=== PATIENT | male | born 1930 | race Caucasian/White ===

== ENCOUNTER 2017-02-05 05:17 | Day surgery (SDC) | payer MEDICARE, OTHER ==
[~2017-02-05] VITALS: Ht 170.2 cm; Wt 89.0 kg
[2017-02-05] VITALS (10 sets, daily range): BP systolic 143–181; BP diastolic 66–94; PULSE 53–110; TEMP 97.8
[~2017-02-05 05:17] MED LIST: AMIODARONE HCL200 MG PO; AMLODIPINE5 MG PO; ASPIR-LOW81 MG PO; ASPIRIN E.C. 8181 MG PO; B-12 PO; B-12500 MCG PO; CALCIUM CARBON500 M1 PO; CHLORTHALIDONE25 MG PO; DETROL LA2 PO; ELIQUIS 2.5 PO; FAMILY PHARMACY99 MG PO; FERROUS SU325 MG/TAB PO; FISH OIL CONCEN1 SG2 PO; FOLIC ACID PO; GLIPIZIDE2.5 MG PO; GLUCOPHAGE500 MG PO; ISMO 20MG20 MG PO; LANOXIN 0.25M0.25 MG PO; LASIX 20MG TABL20 MG PO; LISINOPRIL PO; LISINOPRIL/HCTZ1 TA1 PO; LOPRESSOR 550 MG/TAB PO; LUTEIN20 M1 PO; Lutein PO; POTASSIUM CH2 MEQ/ML PO; PRILOSEC40 MG PO; TOPROL XL 25MG25 MG PO; TOPROL XL100 MG PO; ZOCOR 20MG20 MG PO; detrol LA PO
[2017-02-05 06:44] LABS: HEMOGLOBIN 12.6 g/dl (13.5-18.0); MEAN CELL VOLUME 92 fl (80.0-100.0); MEAN CORPUSCULAR HEMOGLOBIN 32 pg (27.0-31.0); MEAN CORPUSCULAR HGB CONC 34 g/dl (33.0-37.0); MEAN PLATELET VOLUME 9.4 fl (7.4-10.4); PLATELET COUNT 195 K/mm3 (130-400); WHITE BLOOD COUNT 12.7 K/mm3 (4.8-10.8)
[2017-02-05 06:45] LABS: HEMATOCRIT 36.8 % (42.0-52.0)
[2017-02-05 06:52] LABS: PROTHROMBIN TIME 11.1 SECONDS (9.7-12.8)
[2017-02-05 07:03] LABS: CREATININE, serum 1.59 mg/dL (0.66-1.25)
[2017-02-05] MEDS ORDERED: LEVEMIR100 U/ML SQ (08:40)
[2017-02-05] MEDS ORDERED: NOVOLIN N100 U/ML SQ (08:41)
[2017-02-05] MEDS ORDERED: ZYLOPRIM 100MG100 MG PO (08:44)
[2017-02-05] MEDS ORDERED: HUMALOG100 U/ML SQ (08:44)
[2017-02-05] MEDS ORDERED: LANOX0.0625 PO (08:46)
[2017-02-05] MEDS ORDERED: NATURAL IRON65 MG PO (08:48)
[2017-02-05] MEDS ORDERED: MULTI VITAMINS1 TAB PO (08:49)
[2017-02-05] MEDS ORDERED: MIRALAX PA17 GM/Dose PO (08:50)
[2017-02-05] MEDS ORDERED: ALDACTONE 25MG25 M1 PO (08:51)
[2017-02-05] MEDS ORDERED: LASIX 40MG TABL40 MG PO (08:52)
[2017-02-05] MEDS ORDERED: ISORDIL 20MG20 M1 PO (08:53)
[2017-02-05] MEDS ORDERED: ACULAR 3 ML3 ML OS (08:54)
[2017-02-05] MEDS ORDERED: DUREZOL 5 ML5 ML OU (08:55)
[2017-02-05] MEDS ORDERED: POLYMYXIN B/TRIMETH OS (08:55)
[2017-02-05] MEDS ORDERED: TYLENOL 500MG500 MG PO (08:56)
[2017-02-05] MEDS ORDERED: CYANOCOBAL1000 MCG/M IM (08:57)
[2017-02-05] MEDS ORDERED: MILK OF MA400 MG/52 PO (08:57)
[2017-02-05] MEDS ORDERED: MYCOSTATIN100000 U/1 TP (08:59)
== END 2017-02-05 15:37 | disposition home or self-care (01) ==
LOC: COL.CAR 05:17
PROVIDERS: Radiology Diagnostic Radiology
DX: I70.213 Atherosclerosis of native arteries of extremities with intermittent claudication, bilateral legs (principal); F41.9 Anxiety disorder, unspecified; E11.9 Type 2 diabetes mellitus without complications; I25.119 Atherosclerotic heart disease of native coronary artery with unspecified angina pectoris; I48.92 Unspecified atrial flutter; I11.0 Hypertensive heart disease with heart failure; I50.9 Heart failure, unspecified; G47.00 Insomnia, unspecified; Z87.891 Personal history of nicotine dependence
CPT/HCPCS: C1760; C1769; C1887; C1894; J1644; J2250; J3010; Q9967

== ENCOUNTER 2018-02-10 15:57 | Inpatient (IN) | payer MEDICARE, OTHER ==
[2018-02-10] VITALS (227 sets, daily range): BP systolic 138–144; BP diastolic 70–78; PULSE 69–73; TEMP 98–98.2; O2SAT 67–100
[~2018-02-10] VITALS: Ht 170.2 cm; Wt 88.0 kg
[~2018-02-10 15:57] MED LIST changes: +ACULAR 3 ML3 ML OS; +ALDACTONE 25MG25 M1 PO; +CYANOCOBAL1000 MCG/M IM; +DUREZOL 5 ML5 ML OU; +HUMALOG100 U/ML SQ; +ISORDIL 20MG20 M1 PO; +LANOX0.0625 PO; +LASIX 40MG TABL40 MG PO; +LEVEMIR100 U/ML SQ; +MILK OF MA400 MG/52 PO; +MIRALAX PA17 GM/Dose PO; +MULTI VITAMINS1 TAB PO; +MYCOSTATIN100000 U/1 TP; +NATURAL IRON65 MG PO; +NOVOLIN N100 U/ML SQ; +POLYMYXIN B/TRIMETH OS; +TYLENOL 500MG500 MG PO; +ZYLOPRIM 100MG100 MG PO
[2018-02-10] MEDS ORDERED: NEURONTIN100 MG/CAP (17:27)
[2018-02-10] MEDS ORDERED: CYMBALTA 60MG60 MG PO (17:28)
[2018-02-10] MEDS ORDERED: VITAMIN D 1001000 IU (17:30)
[2018-02-10] MEDS ORDERED: PRO STAT PO (17:33)
[2018-02-10 18:08] LABS: BASO % 0.2 % (0.0-2.0); EOS # 0.2 (0.0-0.7); EOS % 0.9 % (0-4.0); GRAN % 82.8 % (42.2-75.2); HEMATOCRIT 40.9 % (42.0-52.0); HEMOGLOBIN 13.9 g/dl (13.5-18.0); LYMPH # 1.5 (1.2-3.4); LYMPH % 7.7 % (20.0-51.0); MEAN CELL VOLUME 91 fl (80.0-100.0); MEAN CORPUSCULAR HEMOGLOBIN 31 pg (27.0-31.0); MEAN CORPUSCULAR HGB CONC 34 g/dl (33.0-37.0); MEAN PLATELET VOLUME 10.3 fl (7.4-10.4); MONO # 1.4 (0.1-0.6); MONO % 7.1 % (1.7-9.3); PLATELET COUNT 211 K/mm3 (130-400); RED BLOOD COUNT 4.48 M/mm3 (4.20-5.60); REDCELL DISTRIBUTION WIDTH-CV 15.3 % (11.5-14.5)
[2018-02-10 18:20] LABS: CALCIUM 8.8 mg/dL (8.4-10.2); CREATININE, serum 1.38 mg/dL (0.66-1.25); POTASSIUM 3.3 mmol/L (3.4-5.0)
[2018-02-10 18:46] LABS: ARTERIAL BLD GAS O2 SATURATION 92.8 % (92-100); ARTERIAL BLOOD GAS HCO3 29.7 meq/L (22-26); ARTERIAL BLOOD GAS PO2 67.8 mmHg (80-100); ARTERIAL BLOOD GAS pH 7.45 (7.35-7.45)
[2018-02-10 23:00] LABS: PH 6 (5-8); SQUAMOUS EPITHELIAL None Seen /hpf; URINE APPEARANCE Clear; URINE BACTERIA None Seen /hpf; URINE BILIRUBIN Negative (NEGATIVE); URINE BLOOD Negative (NEGATIVE); URINE COLOR Yellow; URINE GLUCOSE Negative (NEGATIVE); URINE KETONE Negative (NEGATIVE); URINE LEUKOCYTE ESTERASE Negative (NEGATIVE); URINE NITRATE Negative (NEGATIVE); URINE PROTEIN(semi-quant) Negative (NEGATIVE); URINE RBC 0-2 /hpf; URINE UROBILINOGEN Negative (NEGATIVE)
[2018-02-10 23:31] LABS: COLLECTION METHOD CATHETER
[2018-02-11] VITALS (709 sets, daily range): BP systolic 117–151; BP diastolic 64–70; PULSE 63–74; TEMP 97.7–98.6; O2SAT 61–100
[2018-02-11 06:03] LABS: HEMATOCRIT 39.9 % (42.0-52.0); MEAN CELL VOLUME 95 fl (80.0-100.0); MEAN CORPUSCULAR HEMOGLOBIN 31 pg (27.0-31.0); MEAN CORPUSCULAR HGB CONC 33 g/dl (33.0-37.0); PLATELET COUNT 187 K/mm3 (130-400); RED BLOOD COUNT 4.21 M/mm3 (4.20-5.60); REDCELL DISTRIBUTION WIDTH-CV 15.5 % (11.5-14.5)
[2018-02-11 07:17] LABS: BAND 3 % (0-10); EOSINOPHIL 2 % (0-4); LYMPHOCYTE 7 % (20.0-51.0); NEUTROPHILS 81 % (42.0-75.2)
[2018-02-11 07:18] LABS: PLATELET ESTIMATE NORMAL (NORMAL)
[2018-02-11 07:19] LABS: ANISOCYTOSIS 1+
[2018-02-11 07:28] LABS: CALCIUM 8.7 mg/dL (8.4-10.2); CREATININE, serum 1.43 mg/dL (0.66-1.25); POTASSIUM 3.5 mmol/L (3.4-5.0)
[2018-02-11 11:56] LABS: TSH w REFLEX 0.366 uIU/mL (0.465-4.680)
[2018-02-11 22:30] LABS: CALCIUM 8.2 mg/dL (8.4-10.2); CREATININE, serum 1.7 mg/dL (0.66-1.25); MAGNESIUM 2.1 mg/dL (1.6-2.3); POTASSIUM 3.2 mmol/L (3.4-5.0)
[2018-02-12] VITALS (415 sets, daily range): BP systolic 96–124; BP diastolic 61–88; PULSE 82–122; TEMP 97.5–98.6; O2SAT 60–100
[2018-02-12 05:39] LABS: BASO % 0.2 % (0.0-2.0); EOS # 0.5 (0.0-0.7); EOS % 3.4 % (0-4.0); GRAN # 10.6 (1.4-6.5); HEMATOCRIT 37.2 % (42.0-52.0); HEMOGLOBIN 12.1 g/dl (13.5-18.0); LYMPH # 1.1 (1.2-3.4); LYMPH % 8.1 % (20.0-51.0); MEAN CELL VOLUME 95 fl (80.0-100.0); MEAN CORPUSCULAR HEMOGLOBIN 31 pg (27.0-31.0); MEAN CORPUSCULAR HGB CONC 33 g/dl (33.0-37.0); MEAN PLATELET VOLUME 10.2 fl (7.4-10.4); MONO # 1.1 (0.1-0.6); PLATELET COUNT 170 K/mm3 (130-400); REDCELL DISTRIBUTION WIDTH-CV 15.5 % (11.5-14.5)
[2018-02-12 05:51] LABS: CALCIUM 8.2 mg/dL (8.4-10.2); CREATININE, serum 1.69 mg/dL (0.66-1.25); POTASSIUM 4.1 mmol/L (3.4-5.0)
[2018-02-13] VITALS (675 sets, daily range): BP systolic 97–155; BP diastolic 79–119; PULSE 90–127; TEMP 97–98.6; O2SAT 87–100
[2018-02-13 05:56] LABS: HEMOGLOBIN 10.9 g/dl (13.5-18.0); MEAN CELL VOLUME 93 fl (80.0-100.0); MEAN CORPUSCULAR HEMOGLOBIN 31 pg (27.0-31.0); MEAN CORPUSCULAR HGB CONC 33 g/dl (33.0-37.0); MEAN PLATELET VOLUME 10.4 fl (7.4-10.4); PLATELET COUNT 168 K/mm3 (130-400); REDCELL DISTRIBUTION WIDTH-CV 15.5 % (11.5-14.5)
[2018-02-13 06:13] LABS: CALCIUM 8.3 mg/dL (8.4-10.2); CREATININE, serum 1.56 mg/dL (0.66-1.25); POTASSIUM 3.4 mmol/L (3.4-5.0)
[2018-02-13 06:25] LABS: HEMATOCRIT 32.6 % (42.0-52.0)
[2018-02-13 09:07] LABS: BAND 28 % (0-10); EOSINOPHIL 1 % (0-4); LYMPHOCYTE 6 % (20.0-51.0); METAMYELOCYTE 1 % (0-0); NEUTROPHILS 61 % (42.0-75.2); PLATELET ESTIMATE NORMAL (NORMAL)
[2018-02-14] VITALS (489 sets, daily range): BP systolic 96–136; BP diastolic 69–95; PULSE 82–125; TEMP 97.8–100.2; O2SAT 76–100
[2018-02-14 05:23] LABS: HEMOGLOBIN 10.6 g/dl (13.5-18.0); MEAN CELL VOLUME 95 fl (80.0-100.0); MEAN CORPUSCULAR HEMOGLOBIN 31 pg (27.0-31.0); MEAN CORPUSCULAR HGB CONC 33 g/dl (33.0-37.0); MEAN PLATELET VOLUME 10.4 fl (7.4-10.4); PLATELET COUNT 165 K/mm3 (130-400); RED BLOOD COUNT 3.39 M/mm3 (4.20-5.60); REDCELL DISTRIBUTION WIDTH-CV 15.5 % (11.5-14.5)
[2018-02-14 05:32] LABS: HEMATOCRIT 32.2 % (42.0-52.0)
[2018-02-14 05:36] LABS: CALCIUM 8.2 mg/dL (8.4-10.2); CREATININE, serum 1.44 mg/dL (0.66-1.25); MAGNESIUM 1.9 mg/dL (1.6-2.3); POTASSIUM 3.7 mmol/L (3.4-5.0)
[2018-02-14 06:05] LABS: BAND 22 % (0-10); EOSINOPHIL 7 % (0-4); LYMPHOCYTE 12 % (20.0-51.0); METAMYELOCYTE 1 % (0-0); NEUTROPHILS 52 % (42.0-75.2); PLATELET ESTIMATE NORMAL (NORMAL); TOXIC GRANULATION PRESENT
[2018-02-14 06:06] LABS: ANISOCYTOSIS 1+; OVALOCYTES 1+
[2018-02-15] VITALS (8 sets, daily range): BP systolic 104–144; BP diastolic 70–96; PULSE 72–127; TEMP 96.9–100
[2018-02-15 06:16] LABS: BASO % 0.3 % (0.0-2.0); EOS # 0.5 (0.0-0.7); GRAN # 9.1 (1.4-6.5); GRAN % 79.9 % (42.2-75.2); HEMOGLOBIN 10.8 g/dl (13.5-18.0); LYMPH # 0.8 (1.2-3.4); MEAN CELL VOLUME 94 fl (80.0-100.0); MEAN CORPUSCULAR HEMOGLOBIN 31 pg (27.0-31.0); MEAN CORPUSCULAR HGB CONC 33 g/dl (33.0-37.0); MEAN PLATELET VOLUME 10.6 fl (7.4-10.4); MONO # 0.9 (0.1-0.6); MONO % 7.7 % (1.7-9.3); PLATELET COUNT 172 K/mm3 (130-400); RED BLOOD COUNT 3.47 M/mm3 (4.20-5.60); REDCELL DISTRIBUTION WIDTH-CV 15.8 % (11.5-14.5)
[2018-02-15 06:18] LABS: HEMATOCRIT 32.6 % (42.0-52.0)
[2018-02-15 06:31] LABS: CALCIUM 8.3 mg/dL (8.4-10.2); CREATININE, serum 1.32 mg/dL (0.66-1.25); POTASSIUM 3.7 mmol/L (3.4-5.0)
[2018-02-16 00:35] VITALS: BP 101/63; PULSE 71; TEMP 98.6
[2018-02-16 04:02] VITALS: BP 105/58; PULSE 81; TEMP 98.3
[2018-02-16 06:18] LABS: HEMOGLOBIN 10.5 g/dl (13.5-18.0); MEAN CELL VOLUME 94 fl (80.0-100.0); MEAN CORPUSCULAR HEMOGLOBIN 31 pg (27.0-31.0); MEAN CORPUSCULAR HGB CONC 33 g/dl (33.0-37.0); MEAN PLATELET VOLUME 10.7 fl (7.4-10.4); PLATELET COUNT 178 K/mm3 (130-400); RED BLOOD COUNT 3.41 M/mm3 (4.20-5.60); REDCELL DISTRIBUTION WIDTH-CV 15.9 % (11.5-14.5)
[2018-02-16 06:22] LABS: CALCIUM 8.3 mg/dL (8.4-10.2); CREATININE, serum 1.47 mg/dL (0.66-1.25); POTASSIUM 3.8 mmol/L (3.4-5.0)
[2018-02-16 06:23] LABS: HEMATOCRIT 32.2 % (42.0-52.0)
[2018-02-16 07:13] VITALS: BP 118/76; PULSE 122; TEMP 99
[2018-02-16 07:43] LABS: BAND 26 % (0-10); EOSINOPHIL 1 % (0-4); LYMPHOCYTE 5 % (20.0-51.0); METAMYELOCYTE 2 % (0-0); NEUTROPHILS 59 % (42.0-75.2); PLATELET ESTIMATE NORMAL (NORMAL)
[2018-02-16 11:09] VITALS: BP 103/61; PULSE 121; TEMP 97.7
[2018-02-16 13:51] LABS: ARTERIAL BLD GAS O2 SATURATION 91.5 % (92-100); ARTERIAL BLD GAS TCO2 CT 22.7; ARTERIAL BLOOD GAS BASE EXCESS -1.8 (-2-2); ARTERIAL BLOOD GAS HCO3 21.7 meq/L (22-26); ARTERIAL BLOOD GAS PCO2 32.7 mmHg (35-45); ARTERIAL BLOOD GAS PO2 63.3 mmHg (80-100); ARTERIAL BLOOD GAS pH 7.44 (7.35-7.45)
[2018-02-16 15:53] VITALS: BP 133/90; PULSE 119; TEMP 97.2
[2018-02-16 21:53] VITALS: BP 108/72; PULSE 108; TEMP 98.1
[2018-02-17 01:17] VITALS: BP 116/79; PULSE 110; TEMP 99.7
[2018-02-17 07:00] LABS: HEMOGLOBIN 10.5 g/dl (13.5-18.0); MEAN CELL VOLUME 96 fl (80.0-100.0); MEAN CORPUSCULAR HEMOGLOBIN 31 pg (27.0-31.0); MEAN CORPUSCULAR HGB CONC 32 g/dl (33.0-37.0); MEAN PLATELET VOLUME 10.5 fl (7.4-10.4); PLATELET COUNT 188 K/mm3 (130-400); RED BLOOD COUNT 3.39 M/mm3 (4.20-5.60)
[2018-02-17 07:04] LABS: HEMATOCRIT 32.4 % (42.0-52.0)
[2018-02-17 07:11] LABS: INR 1.1 (0.8-3.0); PROTHROMBIN TIME 12.3 SECONDS (9.7-12.8)
[2018-02-17 07:16] LABS: CALCIUM 8.5 mg/dL (8.4-10.2); CREATININE, serum 1.81 mg/dL (0.66-1.25); POTASSIUM 3.8 mmol/L (3.4-5.0)
[2018-02-17 08:15] LABS: BAND 4 % (0-10); BASOPHIL 1 % (0-2); EOSINOPHIL 3 % (0-4); LYMPHOCYTE 6 % (20.0-51.0); NEUTROPHILS 82 % (42.0-75.2)
[2018-02-17 08:16] VITALS: BP 136/78; PULSE 79; TEMP 97.3
[2018-02-17 08:17] LABS: ANISOCYTOSIS 1+; HYPOCHROMIA 1+; PLATELET ESTIMATE NORMAL (NORMAL)
[2018-02-17 10:29] LABS: PLEURAL FLUID RBC 3000 /mm3 (0-0); PLEURAL FLUID WBC 478 /mm3
[2018-02-17 10:32] LABS: TOTAL PROTEIN,PLEURAL FLUID 2.6 gm/dL
[2018-02-17 10:52] LABS: PLEURAL FLUID APPEARANCE HAZY; PLEURAL FLUID COLOR YELLOW
[2018-02-17 11:41] VITALS: BP 100/64; PULSE 83; TEMP 97.4
[2018-02-17 11:51] LABS: ALANINE AMINOTRANSFERASE 50 U/L (21-72); ALBUMIN 2.9 gm/dL (3.5-5.0); ALKALINE PHOSPHATASE 56 U/L (50-136); ANION GAP 3 mmol/L (7-16); AST,SGOT 31 U/L (15-37); BILIRUBIN,TOTAL 0.5 mg/dL (0.0-1.0); BLOOD UREA NITROGEN 24 mg/dL (9-20); CALCIUM 8.5 mg/dL (8.4-10.2); CARBON DIOXIDE 26 mmol/L (22-30); CHLORIDE 110 mmol/L (98-107); CREATININE, serum 1.87 mg/dL (0.66-1.25); GLUCOSE 125 mg/dL (74-106); POTASSIUM 4.1 mmol/L (3.4-5.0); SODIUM 139 mmol/L (137-145); TOTAL PROTEIN 5.9 gm/dL (6.4-8.2)
[2018-02-17 11:54] LABS: AMMONIA < 9 umol/L (11-35)
[2018-02-17 15:18] VITALS: BP 119/80; PULSE 89; TEMP 99.4
[2018-02-17 19:29] VITALS: BP 122/81; PULSE 79; TEMP 98.8
[2018-02-17 23:45] VITALS: BP 103/60; PULSE 129
[2018-02-18 05:49] VITALS: BP 104/67; PULSE 62; TEMP 98.7
[2018-02-18 06:24] LABS: HEMOGLOBIN 10.4 g/dl (13.5-18.0); MEAN CELL VOLUME 94 fl (80.0-100.0); MEAN CORPUSCULAR HEMOGLOBIN 31 pg (27.0-31.0); MEAN CORPUSCULAR HGB CONC 33 g/dl (33.0-37.0); MEAN PLATELET VOLUME 10.7 fl (7.4-10.4); PLATELET COUNT 205 K/mm3 (130-400); RED BLOOD COUNT 3.38 M/mm3 (4.20-5.60)
[2018-02-18 06:29] LABS: HEMATOCRIT 31.9 % (42.0-52.0)
[2018-02-18 06:45] LABS: CALCIUM 8.7 mg/dL (8.4-10.2); CREATININE, serum 1.81 mg/dL (0.66-1.25); MAGNESIUM 1.9 mg/dL (1.6-2.3); POTASSIUM 3.4 mmol/L (3.4-5.0)
[2018-02-18 07:30] LABS: BAND 27 % (0-10); EOSINOPHIL 2 % (0-4); LYMPHOCYTE 7 % (20.0-51.0); METAMYELOCYTE 1 % (0-0); NEUTROPHILS 59 % (42.0-75.2); PLATELET ESTIMATE NORMAL (NORMAL)
[2018-02-18 07:56] VITALS: BP 106/56; PULSE 61; TEMP 98.1
[2018-02-19] MEDS ORDERED: ROXANOL 20MG20 MG/ML SL (13:13)
== END 2018-02-19 13:55 | disposition hospice, home (50) | DRG 70 ==
LOC: IMCU 15:57 → ICU 16:54 → MEDICAL 02-14 14:10
PROVIDERS: Family Medicine; Hospitalist; Internal Medicine; Internal Medicine Critical Care Medicine; Legal Medicine; Nurse Practitioner Family; Physician Assistant
PROC: 0W993ZX Drainage of Right Pleural Cavity, Percutaneous Approach, Diagnostic (ICD-10-PCS; principal; 2018-02-17)
DX: G93.49 Other encephalopathy (principal); J69.0 Pneumonitis due to inhalation of food and vomit; J18.9 Pneumonia, unspecified organism; J90 Pleural effusion, not elsewhere classified; Z66 Do not resuscitate; Z51.5 Encounter for palliative care; N17.9 Acute kidney failure, unspecified; I50.32 Chronic diastolic (congestive) heart failure; E87.2 Acidosis; I48.92 Unspecified atrial flutter; I11.0 Hypertensive heart disease with heart failure; E11.9 Type 2 diabetes mellitus without complications; I25.10 Atherosclerotic heart disease of native coronary artery without angina pectoris; I48.2 Chronic atrial fibrillation; Z95.1 Presence of aortocoronary bypass graft; I08.3 Combined rheumatic disorders of mitral, aortic and tricuspid valves; Z79.4 Long term (current) use of insulin; Z87.891 Personal history of nicotine dependence; H10.33 Unspecified acute conjunctivitis, bilateral; Z86.73 Personal history of transient ischemic attack (TIA), and cerebral infarction without residual deficits; E87.6 Hypokalemia
CPT/HCPCS: 99222; 99222-AI; 99232-AI; 99233-AI; 99239; A9585; C1751; J0282; J1160; J1170; J1650; J1815; J1940; J1953; J2060; J2543; J3370; J3480; J7030; J7040; J7060; Q9967